=== PATIENT | male | born 1940 | race Caucasian/White ===

== ENCOUNTER 2018-01-03 10:48 | Inpatient (IN) | payer MEDICARE, MEDICAID ==
[2018-01-03] MEDS ORDERED: Albuterol/Ipratropium Neb 3 ML AERS HHN ONE ×2 (10:54→11:07)
[2018-01-03] MEDS ORDERED: Dexamethasone Sodium Phos 4 mg/mL Vial INH STA (10:55)
--- NOTE | 2018-01-03 11:06 | ED Physician Chart ---
ED Chief Complaint/HPI - Patient Information Date Seen:: 01/03/18 Time Seen:: 10:56 Chief Complaint:: SOB History of Present Illness:: 77 YR OLD MALE FROM [facility] BIB BY [facility] FOR SOB COPD EXACERBATION SINCE YEST APPARENTLY BEEN SMOKING OUTSIDE PT VERBALIZING [place] [facility] [address] PERCENT AT THE SCENE PER PARAMEDICS THEY PLACED HIM ON SOME O2 PT MILD COUGH CONGESTION Allergies:: Allergies Allergy/AdvReac Type Severity Reaction Status Date / Time MDX No Known Allergies - Nka Allergy Verified 02/22/13 20:06 [No Known Allergies - Nka] ED Review of Systems - Review of Systems General/Constitutional: No fever Skin: No skin lesions Head: No headache Eyes: No loss of vision ENT: No earache Neck: No neck pain Cardio Vascular: No chest pain Pulmonary: SOB, Cough GI: No nausea, No vomiting Musculoskeletal: Bone or joint pain ED Past Medical History - Past Medical History Past Medical History: HTN, CAD, CVA/TIA, Dyslipidemia, PUD/GERD, Thyroid disorder ED Physical Exam - Physical Examination General/Constitutional: Well-developed, well-nourished, Alert Head: Atraumatic Eyes: Lids, conjuctiva normal Skin: Nl inspection ENMT: External ears, nose nl Neck: Nontender Other Respiratory comments:: SOME RHONCHI AND OCCAS WHEEZING Cardio Vascular: RRR GI: No tenderness/rebounding/guarding : No CVA tenderness Extremities: No tenderness or effusion ED Assessment - Assessment General Assessment: SOB COPD EXACRERBATION ED Septic Shock - . Is Septic Shock (SBP<90, OR Lactate>4 mmol\L) present?: No ED Reassessment (Disposition) - Reassessment Reassessment Condition:: Improved - Diagnosis Diagnosis:: SOB COPD EXACERBATION - Patient Disposition Discharge/Transfer:: Acute Care w/in this hosp
[2018-01-03] MEDS ORDERED: Dexamethasone Sodium Phos 4 mg/mL Vial ONE (11:07)
[2018-01-03 11:18] LABS: % BASOPHILS 0.9 % (0.0-2.0); % EOSINOPHILS 1.7 % (0.0-5.0); % MONOCYTES 8.5 % (2.0-10.0); % NEUTROPHILS 67.9 % (40.0-80.0); EOSINOPHILE ABSOLUTE 0.1 Th/cmm (0.1-0.4); HEMATOCRIT 43.2 % (41.0-60); HEMOGLOBIN 14.3 gm/dL (12-16); LYMPHOCYTE ABSOLUTE 1.1 Th/cmm (1.5-3.0); MEAN CELL VOLUME 87.5 fl (80-99); MEAN CORPUSCULAR HGB CONC 33.2 pg (28.0-36.0); MEAN PLATELET VOLUME 9.1 fl; MONOCYTE ABSOLUTE 0.4 Th/cmm (0.3-1.0); NEUTROPHILE ABSOLUTE 3.6 Th/cmm (1.8-8.0); PLATELET COUNT 178 Th/cmm (150-400); RED BLOOD COUNT 4.93 Mil/cmm (3.80-5.80); WHITE BLOOD COUNT 5.2 Th/cmm (4.8-10.8)
[2018-01-03] MEDS ORDERED: Potassium Chloride 20 mEq ER Tab PO ONE ×2 (11:18→11:19)
[2018-01-03 11:27] VITALS: BP 134/66
[2018-01-03 11:45] LABS: ALB/GLOB RATIO 1.6 (1.0-1.8); ALBUMIN 4.4 gm/dL (4.2-5.5); ALKALINE PHOSPHATASE 60 U/L (34-104); BILIRUBIN,TOTAL 0.7 mg/dL (0.3-1.0); BUN - UREA NITROGEN 12 mg/dL (7-25); CALCIUM SERUM 9.7 mg/dL (8.6-10.3); CARBON DIOXIDE 28.4 mEq/L (21.0-31.0); CHLORIDE 103 mEq/L (98-107); CREATININE - SERUM 0.8 mg/dL (0.7-1.3); GLUCOSE 154 mg/dL (70-105); POTASSIUM SERUM 4.4 mEq/L (3.5-5.1); SGOT 20 U/L (13-39); SGPT/ALT 13 U/L (7-52); SODIUM SERUM 137 mEq/L (136-145); TOTAL PROTEIN,SERUM 7.1 gm/dL (6.0-8.3)
[2018-01-03] MEDS: Sodium Chloride 0.9% 1,000 ML IV SCH (16:06)
[2018-01-03] MEDS ORDERED: Fleet Enema 135 mL RC PRN (23:41)
[2018-01-03] MEDS ORDERED: Magnesium Hydroxide (MOM) 30 mL UDC PO PRN (23:41)
--- NOTE | 2018-01-04 00:28 | History & Physical ---
ADMIT DATE: 01/03/2018 CHIEF COMPLAINT: Short of breath, severe weakness, and possible acute CVA. HISTORY OF PRESENT ILLNESS: The patient is a 77-year-old male admitted from the Emergency Room to telemetry floor of [facility] due to multiple complicated medical conditions. I went to the half-way to see the patient the day before. The patient first complaint was he was not doing well with short of breath, very weak, and the patient felt he was about to have another stroke. The patient did have stroke before. As per patient request, he was sent to the Emergency Room and subsequently admitted. Somehow the ER did not do the brain CT scan. I will order brain CT scan stat. Chest x-ray was also not ordered. On physical examination, the patient does have COPD exacerbation which is due to compliance and smoking. I have ordered RT protocol. 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 PAST SURGICAL HISTORY: Denies significant past surgical history. MEDICATIONS: See medication reconciliation list. ALLERGIES: No known drug allergies. FAMILY HISTORY: Noncontributory. SOCIAL HISTORY: The patient was a heavy smoker, still smoking from time to time. No history of alcohol or IV drug use. REVIEW OF SYSTEMS: As per HPI. PHYSICAL EXAMINATION: GENERAL: A well-developed, thin, male, in no acute distress. SKIN: Warm and dry. VITAL SIGNS: Basically stable. HEENT: Normocephalic, atraumatic. Pupils equal, round, react to light and accommodation. CHEST: Symmetrical. LUNGS: Few wheezing appreciated. CARDIAC: Normal sinus rhythm: S1, S2. ABDOMEN: Benign, soft, nontender. EXTREMITIES: No clubbing, cyanosis, edema . NEUROLOGICAL: Unremarkable. LABORATORY DATA: Reviewed as seen from the computer. ASSESSMENT AND PLAN: 1. Short of breath: Due to chronic obstructive pulmonary disease exacerbation. I have ordered RT protocol and the patient's troponin is less than 0.01. I will also start the patient on Solu-Medrol with tapering. 2. Chronic obstructive pulmonary disease exacerbation: RT protocol, Solu-Medrol with tapering. 3. Respiratory insufficiency: Aspiration precaution being exercised. 4. History of cerebrovascular accident and rule out new CVA: I have started the patient on IV fluid and normal saline to treat empirically for possible transient ischemic attack to increase perfusion to the peripheral ischemic area. I will order a stat brain CT scan. 5. Altered level of function on and off due to metabolic encephalopathy and dementia. 6. Difficulty walking: Multifactorial. 7. Seizure: Continue medication. 8. History of mild psychosis, controlled. 9. DVT prophylaxis. JOB# [id number]
[2018-01-04] MEDS: methylPREDNISolone SS 40 mg Vial IVP SCH ×3 (05:34→20:39)
[2018-01-04] MEDS: Pantoprazole 40 mg EC Tab PO SCH (06:39)
[2018-01-04] MEDS: Levothyroxine 0.05 Mg Tab PO SCH (06:39)
[2018-01-04] MEDS ORDERED: SALMETEROL IH SCH (09:00)
[2018-01-04] MEDS ORDERED: Levothyroxine 0.05 Mg Tab PO SCH (09:00)
[2018-01-04] MEDS ORDERED: FLUTICASONE IH SCH (09:00)
[2018-01-04] MEDS: Aspirin 81mg Chewable Tab PO SCH (09:01)
[2018-01-04] MEDS: Sodium Chloride 0.9% 1,000 ML IV SCH (09:02)
--- NOTE | 2018-01-04 09:53 | Diagnostic Imaging Report ---
CHEST X-RAY: AP view INDICATION: Shortness of breath COMPARISON: Chest x-ray on 11/18/2013 FINDINGS: 3 mm calcified granuloma the right lateral lung zone is noted. Chronic COPD lung changes are seen with no focal consolidation or effusions. Bibasal pleural thickening is noted. Heart size is normal. Degenerative changes of the spine are noted. There is evidence of old trauma to the right distal clavicle. IMPRESSION: Chronic lung changes of COPD. No focal consolidation identified. 3 mm granuloma the right midlung zone.
--- NOTE | 2018-01-04 09:58 | Diagnostic Imaging Report ---
Head CT without intravenous contrast Indication: Stroke Comparison: None Technique: Axial images were obtained from the vertex to the skull base without IV contrast. Coronal reconstructions were made. Total DLP: 801, CTDI36 FINDINGS: Images of the brain obtained without contrast demonstrate no evidence of an acute hemorrhage. There is encephalomalacia along the right parietal lobe. Atrophy is noted. Mild white matter disease is noted. The ventricles and basal cisterns are patent. No mass effect or midline shift. No evidence of a skull fracture or focal soft tissue swelling. There is mild sclerosis of left mastoid air cells. Multiple age-indeterminate nasal fractures are noted. IMPRESSION: No evidence of acute intracranial hemorrhage. Right parietal lobe encephalomalacia which may be due to previous old infarct. Please correlate clinically and with old exams. Atrophy. Mild supratentorial white matter disease which is nonspecific and may be due to chronic microvessel ischemia. Age Indeterminate nasal bone fractures, correlate with clinical history. Mild sclerosis of the left mastoid air cells which may be due to old inflammatory process.
[2018-01-04] MEDS: Atorvastatin Calcium 10 MG TAB PO SCH (20:25)
[2018-01-04] MEDS ORDERED: Non-Formulary Item 1 EA (Melatonin [Melatonin] 3 MG) PO SCH (21:00)
--- NOTE | 2018-01-04 23:46 | Internal Medicine Prog Note ---
Internal Medicine Subjective - Subjective Service Date: 01/04/18 Patient seen and examined:: without staff Patient is:: awake, interactive, in bed, confused Patient Complaints of:: congestion Per staff patient has:: no adverse event Internal Medicine Objective - Results Result Diagrams: 01/03/18 11:05 01/03/18 11:05 Recent Labs: Laboratory Last Values WBC 5.2 Th/cmm (4.8-10.8) 01/03/18 11:05 RBC 4.93 Mil/cmm (3.80-5.80) 01/03/18 11:05 Hgb 14.3 gm/dL (12-16) 01/03/18 11:05 Hct 43.2 % (41.0-60) 01/03/18 11:05 MCV 87.5 fl (80-99) 01/03/18 11:05 MCH 29.0 pg (27.0-31.0) 01/03/18 11:05 MCHC Differential 33.2 pg (28.0-36.0) 01/03/18 11:05 RDW 13.0 % (11.5-20.0) 01/03/18 11:05 Plt Count 178 Th/cmm (150-400) 01/03/18 11:05 MPV 9.1 fl 01/03/18 11:05 Neutrophils % 67.9 % (40.0-80.0) 01/03/18 11:05 Lymphocytes % 21.0 % (20.0-50.0) 01/03/18 11:05 Monocytes % 8.5 % (2.0-10.0) 01/03/18 11:05 Eosinophils % 1.7 % (0.0-5.0) 01/03/18 11:05 Basophils % 0.9 % (0.0-2.0) 01/03/18 11:05 Sodium 137 mEq/L (136-145) 01/03/18 11:05 Potassium 4.4 mEq/L (3.5-5.1) 01/03/18 11:05 Chloride 103 mEq/L (98-107) 01/03/18 11:05 Carbon Dioxide 28.4 mEq/L (21.0-31.0) 01/03/18 11:05 Anion Gap 10.0 (7.0-16.0) 01/03/18 11:05 BUN 12 mg/dL (7-25) 01/03/18 11:05 Creatinine 0.8 mg/dL (0.7-1.3) 01/03/18 11:05 Est GFR ( Amer) TNP 01/03/18 11:05 Est GFR (Non-Af Amer) TNP 01/03/18 11:05 BUN/Creatinine Ratio 15.0 01/03/18 11:05 Glucose 154 mg/dL (70-105) H 01/03/18 11:05 Whole Bld Lactic Acid 1.66 mmol/L (0.60-1.99) 01/03/18 11:05 Calcium 9.7 mg/dL (8.6-10.3) 01/03/18 11:05 Total Bilirubin 0.7 mg/dL (0.3-1.0) 01/03/18 11:05 AST 20 U/L (13-39) 01/03/18 11:05 ALT 13 U/L (7-52) 01/03/18 11:05 Alkaline Phosphatase 60 U/L (34-104) 01/03/18 11:05 Troponin I < 0.01 ng/mL (0.01-0.05) L 01/03/18 11:05 Total Protein 7.1 gm/dL (6.0-8.3) 01/03/18 11:05 Albumin 4.4 gm/dL (4.2-5.5) 01/03/18 11:05 Globulin 2.7 gm/dL 01/03/18 11:05 Albumin/Globulin Ratio 1.6 (1.0-1.8) 01/03/18 11:05 TSH 1.27 uIU/ml (0.34-5.60) 01/04/18 06:03 - Physical Exam Vitals and I&O: Vital Signs Temp 97.7 F 01/04/18 20:00 Pulse 97 01/04/18 20:00 Resp 18 01/04/18 20:00 BP 123/59 01/04/18 20:00 Pulse Ox 100 01/04/18 20:00 Intake & Output 01/04/18 01/04/18 01/05/18 06:59 18:59 06:59 Intake Total 1240 1500 Balance 1240 1500 Weight (lbs) 70.307 kg 70.307 kg Intake: Intake, IV Amount 1000 Sodium Chloride 0.9% 1, 1000 000 ml @ 90 mls/hr IV . Q11H7M [facility] Rx#:[id number] Oral 240 1500 Other: # Voids 2 3 # Bowel Movements 0 Weight Source Bedscale Bedscale Active Medications: Current Medications Acetaminophen (Tylenol) 650 mg PO Q4HR PRN PRN Reason: MILD PAIN 1-3 Stop: 03/04/18 23:40 Last Admin: 01/04/18 20:25 Dose: 650 mg Aspirin (Aspirin Chewable) 81 mg PO DAILY [facility] Stop: 03/05/18 08:59 Last Admin: 01/04/18 09:01 Dose: 81 mg Atorvastatin Calcium (Lipitor) 10 mg PO HS [facility]; Protocol Stop: 03/05/18 20:59 Last Admin: 01/04/18 20:25 Dose: 10 mg Bisacodyl (Dulcolax 10 Mg Supp) 10 mg RC DAILY PRN PRN Reason: IF MOM INEFFECTIVE Stop: 03/04/18 23:40 Docusate Sodium (Colace) 100 mg PO BID [facility] Stop: 03/05/18 08:59 Last Admin: 01/04/18 16:59 Dose: 100 mg Sodium Chloride (Nacl 0.9%) 1,000 mls @ 90 mls/hr IV .Q11H7M [facility] Stop: 03/04/18 15:18 Last Admin: 01/04/18 09:02 Dose: 90 mls/hr Levothyroxine Sodium (Synthroid) 0.05 mg PO QDAC [facility] Stop: 03/05/18 07:29 Last Admin: 01/04/18 06:39 Dose: 0.05 mg Magnesium Hydroxide (Milk Of Magnesia) 30 ml PO HS PRN PRN Reason: Constipation Stop: 03/04/18 23:40 Methylprednisolone Sodium Succinate (Solu-Medrol) 60 mg IVP Q8HR [facility] Stop: 03/05/18 04:59 Last Admin: 01/04/18 20:39 Dose: Not Given Miscellaneous (Fluticasone/Salmeterol [Advair 250-50 Diskus]) 1 dsk IH BID [facility] Stop: 03/05/18 08:59 Pantoprazole Sodium (Protonix) 40 mg PO 0730 [facility] Stop: 03/05/18 07:29 Last Admin: 01/04/18 06:39 Dose: 40 mg Senna (Senna) 17.2 mg PO HS [facility] Stop: 03/05/18 20:59 Last Admin: 01/04/18 20:25 Dose: 8.6 mg Sodium Phosphate (Fleet Enema) 135 ml RC Q48H PRN PRN Reason: IF DULCOLAX INEFFECTIVE Stop: 03/04/18 23:40 Zolpidem Tartrate (Ambien) 10 mg PO HS PRN PRN Reason: Insomnia Stop: 03/04/18 21:51 Last Admin: 01/04/18 23:07 Dose: 10 mg General: weak, lethargic, congested, disheveled, thin HEENT: NC/AT, PERRLA, EOMI, anicteric sclerae, throat clear Neck: Supple, No JVD, No thyromegaly Lungs: wheezing, ronchi Cardiovascular: RRR, Normal S1, Normal S2, without murmur Abdomen: soft, non-tender, non-distended, positive bowel sound Extremities: clear Neurological: no change - Procedures Procedures: Procedures Procedure Code Date OTHER GROUP THERAPY 94.44 02/23/13 Internal Medicine Assmt/Plan - Assessment Assessment: SOB: due to COPD exacerbation. RT protocol. R/O TIA COPD exacerbation: Solumedrol tapering; RT protocol. Weakness: fall prevention education. h/o CVA: PT ALOC: due to metabolic encephalopathy. Seizure: continue monitoring.
[2018-01-05] MEDS: methylPREDNISolone SS 40 mg Vial IVP SCH ×3 (06:10→21:50)
[2018-01-05] MEDS: Sodium Chloride 0.9% 1,000 ML IV SCH (06:11)
[2018-01-05] MEDS: Levothyroxine 0.05 Mg Tab PO SCH (06:30)
[2018-01-05 07:04] LABS: % EOSINOPHILS 0.1 % (0.0-5.0); % LYMPHOCYTES 10.9 % (20.0-50.0); % MONOCYTES 4.8 % (2.0-10.0); % NEUTROPHILS 84.2 % (40.0-80.0); HEMATOCRIT 40.9 % (41.0-60); HEMOGLOBIN 13.6 gm/dL (12-16); LYMPHOCYTE ABSOLUTE 1.1 Th/cmm (1.5-3.0); MEAN CELL VOLUME 87.1 fl (80-99); MEAN CORPUSCULAR HGB CONC 33.3 pg (28.0-36.0); MEAN PLATELET VOLUME 9.1 fl; MONOCYTE ABSOLUTE 0.5 Th/cmm (0.3-1.0); NEUTROPHILE ABSOLUTE 8.6 Th/cmm (1.8-8.0); PLATELET COUNT 198 Th/cmm (150-400); RED CELL DISTRIBUTION WIDTH 12.8 % (11.5-20.0); WHITE BLOOD COUNT 10.2 Th/cmm (4.8-10.8)
[2018-01-05] MEDS: Aspirin 81mg Chewable Tab PO SCH (08:29)
[2018-01-05] MEDS: Pantoprazole 40 mg EC Tab PO SCH (08:29)
--- NOTE | 2018-01-05 08:40 | Internal Medicine Prog Note ---
Internal Medicine Subjective - Subjective Service Date: 01/05/18 Patient seen and examined:: without staff Patient is:: awake, interactive, in bed, confused Patient Complaints of:: congestion Per staff patient has:: no adverse event Internal Medicine Objective - Results Result Diagrams: 01/05/18 06:40 01/03/18 11:05 Recent Labs: Laboratory Last Values WBC 10.2 Th/cmm (4.8-10.8) 01/05/18 06:40 RBC 4.70 Mil/cmm (3.80-5.80) 01/05/18 06:40 Hgb 13.6 gm/dL (12-16) 01/05/18 06:40 Hct 40.9 % (41.0-60) L 01/05/18 06:40 MCV 87.1 fl (80-99) 01/05/18 06:40 MCH 29.0 pg (27.0-31.0) 01/05/18 06:40 MCHC Differential 33.3 pg (28.0-36.0) 01/05/18 06:40 RDW 12.8 % (11.5-20.0) 01/05/18 06:40 Plt Count 198 Th/cmm (150-400) 01/05/18 06:40 MPV 9.1 fl 01/05/18 06:40 Neutrophils % 84.2 % (40.0-80.0) H 01/05/18 06:40 Lymphocytes % 10.9 % (20.0-50.0) L 01/05/18 06:40 Monocytes % 4.8 % (2.0-10.0) 01/05/18 06:40 Eosinophils % 0.1 % (0.0-5.0) 01/05/18 06:40 Basophils % 0.0 % (0.0-2.0) 01/05/18 06:40 Sodium 137 mEq/L (136-145) 01/03/18 11:05 Potassium 4.4 mEq/L (3.5-5.1) 01/03/18 11:05 Chloride 103 mEq/L (98-107) 01/03/18 11:05 Carbon Dioxide 28.4 mEq/L (21.0-31.0) 01/03/18 11:05 Anion Gap 10.0 (7.0-16.0) 01/03/18 11:05 BUN 12 mg/dL (7-25) 01/03/18 11:05 Creatinine 0.8 mg/dL (0.7-1.3) 01/03/18 11:05 Est GFR ( Amer) TNP 01/03/18 11:05 Est GFR (Non-Af Amer) TNP 01/03/18 11:05 BUN/Creatinine Ratio 15.0 01/03/18 11:05 Glucose 154 mg/dL (70-105) H 01/03/18 11:05 Whole Bld Lactic Acid 1.66 mmol/L (0.60-1.99) 01/03/18 11:05 Calcium 9.7 mg/dL (8.6-10.3) 01/03/18 11:05 Total Bilirubin 0.7 mg/dL (0.3-1.0) 01/03/18 11:05 AST 20 U/L (13-39) 01/03/18 11:05 ALT 13 U/L (7-52) 01/03/18 11:05 Alkaline Phosphatase 60 U/L (34-104) 01/03/18 11:05 Troponin I < 0.01 ng/mL (0.01-0.05) L 01/03/18 11:05 B-Natriuretic Peptide 130.0 pg/mL (5.0-100.0) H 01/05/18 06:40 Total Protein 7.1 gm/dL (6.0-8.3) 01/03/18 11:05 Albumin 4.4 gm/dL (4.2-5.5) 01/03/18 11:05 Globulin 2.7 gm/dL 01/03/18 11:05 Albumin/Globulin Ratio 1.6 (1.0-1.8) 01/03/18 11:05 TSH 1.27 uIU/ml (0.34-5.60) 01/04/18 06:03 - Physical Exam Vitals and I&O: Vital Signs Temp 98.4 F 01/05/18 04:00 Pulse 80 01/05/18 07:54 Resp 18 01/05/18 08:07 BP 116/58 01/05/18 04:00 Pulse Ox 96 01/05/18 07:54 Intake & Output 0801/05/18 01/05/18 18:59 06:59 18:59 Intake Total 1500 1000 Balance 1500 1000 Weight (lbs) 70.307 kg 70.307 kg Intake: Intake, IV Amount 1000 Sodium Chloride 0.9% 1, 1000 000 ml @ 90 mls/hr IV . Q11H7M [facility] Rx#:[id number] Oral 1500 Other: # Voids 3 3 # Bowel Movements 1 Stool Characteristics Soft Brown Weight Source Bedscale Bedscale Active Medications: Current Medications Acetaminophen (Tylenol) 650 mg PO Q4HR PRN PRN Reason: MILD PAIN 1-3 Stop: 03/04/18 23:40 Last Admin: 01/04/18 20:25 Dose: 650 mg Aspirin (Aspirin Chewable) 81 mg PO DAILY [facility] Stop: 03/05/18 08:59 Last Admin: 01/05/18 08:29 Dose: 81 mg Atorvastatin Calcium (Lipitor) 10 mg PO HS [facility]; Protocol Stop: 03/05/18 20:59 Last Admin: 01/04/18 20:25 Dose: 10 mg Bisacodyl (Dulcolax 10 Mg Supp) 10 mg RC DAILY PRN PRN Reason: IF MOM INEFFECTIVE Stop: 03/04/18 23:40 Docusate Sodium (Colace) 100 mg PO BID [facility] Stop: 03/05/18 08:59 Last Admin: 01/05/18 08:29 Dose: 100 mg Sodium Chloride (Nacl 0.9%) 1,000 mls @ 90 mls/hr IV .Q11H7M [facility] Stop: 03/04/18 15:18 Last Admin: 01/05/18 06:11 Dose: 90 mls/hr Levothyroxine Sodium (Synthroid) 0.05 mg PO QDAC [facility] Stop: 03/05/18 07:29 Last Admin: 01/05/18 06:30 Dose: 0.05 mg Magnesium Hydroxide (Milk Of Magnesia) 30 ml PO HS PRN PRN Reason: Constipation Stop: 03/04/18 23:40 Methylprednisolone Sodium Succinate (Solu-Medrol) 60 mg IVP Q8HR [facility] Stop: 03/05/18 04:59 Last Admin: 01/05/18 06:10 Dose: 60 mg Miscellaneous (Fluticasone/Salmeterol [Advair 250-50 Diskus]) 1 dsk IH BID [facility] Stop: 03/05/18 08:59 Pantoprazole Sodium (Protonix) 40 mg PO 0730 [facility] Stop: 03/05/18 07:29 Last Admin: 01/05/18 08:29 Dose: 40 mg Senna (Senna) 17.2 mg PO HS [facility] Stop: 03/05/18 20:59 Last Admin: 01/04/18 20:25 Dose: 8.6 mg Sodium Phosphate (Fleet Enema) 135 ml RC Q48H PRN PRN Reason: IF DULCOLAX INEFFECTIVE Stop: 03/04/18 23:40 Zolpidem Tartrate (Ambien) 10 mg PO HS PRN PRN Reason: Insomnia Stop: 03/04/18 21:51 Last Admin: 01/04/18 23:07 Dose: 10 mg General: weak, lethargic, congested, disheveled, thin HEENT: NC/AT, PERRLA, EOMI, anicteric sclerae, throat clear Neck: Supple, No JVD, No thyromegaly Lungs: wheezing, ronchi Cardiovascular: RRR, Normal S1, Normal S2, without murmur Abdomen: soft, non-tender, non-distended, positive bowel sound Extremities: clear Neurological: no change - Procedures Procedures: Procedures Procedure Code Date OTHER GROUP THERAPY 94.44 02/23/13 Internal Medicine Assmt/Plan - Assessment Assessment: Respiratory Insufficiency: aspiration precaution. SOB: due to COPD exacerbation. RT protocol. R/O TIA COPD exacerbation: Solumedrol tapering; RT protocol. Weakness: fall prevention education. h/o CVA: PT ALOC: due to metabolic encephalopathy. Seizure: continue monitoring.
[2018-01-05] MEDS ORDERED: Haloperidol Lactate 5 mg/mL 1mL Vial IM PRN (17:32)
[2018-01-05] MEDS ORDERED: Haloperidol Lactate 5 mg/mL 1mL Vial IM ONE (17:36)
[2018-01-05] MEDS ORDERED: Haloperidol Lactate 5 mg/mL 1mL Vial ONE (17:50)
[2018-01-05] MEDS: Atorvastatin Calcium 10 MG TAB PO SCH (21:49)
[2018-01-06] MEDS: methylPREDNISolone SS 40 mg Vial IVP SCH ×2 (05:34→12:47)
[2018-01-06] MEDS: Pantoprazole 40 mg EC Tab PO SCH (06:47)
[2018-01-06] MEDS: Levothyroxine 0.05 Mg Tab PO SCH (06:47)
[2018-01-06] MEDS: Aspirin 81mg Chewable Tab PO SCH (08:07)
--- NOTE | 2018-01-07 18:21 | Discharge Summary ---
DATE OF DISCHARGE: 01/06/2018 FINAL DIAGNOSES: 1. Altered level of consciousness, improved. 2. Agitation, improved. 3. Chronic obstructive pulmonary disease exacerbation, received RT protocol and Solu-Medrol. 4. Shortness of breath, resolved. 5. Respiratory insufficiency stabilized. 6. Status post cerebrovascular accident. 7. Difficulty walking. 8. Seizure control. HOSPITAL COURSE: The patient is a 77-year-old male admitted due to multiple complicated medical conditions as mentioned above. The patient received RT protocol and Solu-Medrol for the COPD exacerbation with shortness of breath and respiratory insufficiency. During hospitalization, the patient was confused, agitated from time to time, but stabilized. He was accepted and agreed to be discharged to [facility]. DISCHARGE CONDITION: Stable. DISPOSITION: [facility]. DISCHARGE MEDICATIONS: Continue medication from here. DIET: Cardiac, soft diet. ACTIVITY: Bed rest with physical therapy. FOLLOWUP: Same day in [place]. [facility]# [id number]
== END 2018-01-06 20:15 | DRG 190 ==
LOC: ER 10:48 → TELE 13:10
PROVIDERS: ADMIT Internal Medicine; ATTEND Internal Medicine
DX: J44.1 Chronic obstructive pulmonary disease with (acute) exacerbation (principal); G93.41 Metabolic encephalopathy; I10 Essential (primary) hypertension; I25.10 Atherosclerotic heart disease of native coronary artery without angina pectoris; E78.5 Hyperlipidemia, unspecified; K21.9 Gastro-esophageal reflux disease without esophagitis; I25.2 Old myocardial infarction; F03.90 Unspecified dementia, unspecified severity, without behavioral disturbance, psychotic disturbance, mood disturbance, and anxiety; R56.9 Unspecified convulsions; R06.89 Other abnormalities of breathing; Z86.73 Personal history of transient ischemic attack (TIA), and cerebral infarction without residual deficits
CPT/HCPCS: 36415-UA; 70450-TC; 71045-TC; 80053-TC; 83605; 83880-TC; 84443-TC; 84484-TC; 85025-TC; 93005; 94640; 94760; J1100; J1200; J1630; J2060; J2920; J7030; Z7610